=== PATIENT | female | born 1955 | race Caucasian/White ===

== ENCOUNTER → 2020-07-08 17:13 | Outpatient (CLI) | payer MEDICARE, OTHER, SELFPAY ==
[2020-07-08 18:23] LABS: Coronavirus 19 IgG Antibody Negative (Negative); Coronavirus 19 IgM Antibody Negative (Negative)
== END ==
PROVIDERS: Visit Provider Internal Medicine Gastroenterology
DX: Z01.89 Encounter for other specified special examinations (principal); Z12.11 Encounter for screening for malignant neoplasm of colon
CPT/HCPCS: 36415; 86328

== ENCOUNTER 2020-07-10 10:44 | Day surgery (SDC) | payer MEDICARE, OTHER, SELFPAY ==
[2020-07-02 12:12] VITALS: BMI 23.3
[2020-07-10] VITALS (7 sets, daily range): BP systolic 104–136; BP diastolic 59–68; PULSE 57–74; RESP 16–18; TEMP 36.3–37.2; O2SAT 97–99
--- NOTE | 2020-07-10 12:17 | P.PN_ITS ---
[facility] Anesthesia Checklist - Patient Identification Patient Identification: Arm Band - Structural Data Admitted From: Home Planned Operative Procedure/s: colonoscopy Consent for Planned Operative Procedure(s) Verified: Yes Verified Documents: Surgical Consent, History and Physical - NPO Status Verified Time NPO: 00:00 - Additional verifications Anesthesia Reactions: No - Airway Assessment C-Spine Mobility Assessed: Yes (mp2) TMJ Mobility Assessed: Yes Dentition: Good Dentition - Neurological Assessment Level of Consciousness: Awake, Alert - Anesthesia Plan Anesthesia Risk discussed: Yes Anesthesia Plan: Verified ASA Class: I Anesthesia Type: MAC [facility] History I have reviewed the patient's past medical history: Yes Medical History: Reports:: MRSA (lungs) Denies:: Cancer, Diabetes Mellitus Type 1, Diabetes Mellitus Type 2, Internal Pacemaker, Seizures *Have you ever received a pneumonia vaccine?: Yes *Have you received a flu vaccine this season?: No Anesthesia experience/problems:: nac Other Surgeries: Yes: Hysterectomy-Total, Other. No: Pacemaker Amputation: No Fractures: No - *Social History Last grade of school completed: Advanced degree Alcohol Intake: never Substance Use Type: denies use *Occupational Status:: employed *Travel in the last 8 weeks: None Family Hx:: No significant family history
--- NOTE | 2020-07-10 12:34 | HMH.PROC ---
[facility] Procedure Note Procedure Note:: Colonoscopy Procedure Report: Colonoscopy with cold snare polypectomy Endoscopist: Kayode Plaza II, MD Referring physician: Urban Nieves MD Date of Procedure: July 10, 2020 Equipment: Olympus 180 variable stiffness pediatric colonoscope Sedation: MAC sedation Indication: Mrs. Quinn is a 64-year-old female who is here for follow-up screening/surveillance colonoscopy secondary to a personal history of colon polyps. This is her third colonoscopy. Her first colonoscopy 10 years ago revealed 2 polyps. Her last colonoscopy in May 2014 revealed a single sigmoid polyp (tubular adenoma) which was removed (Dr. Raphael Rivas, [facility]). The patient reports no abdominal pain, weight loss, change in her bowel habits or rectal bleeding. She reports no family history of colon cancer. Procedure: Prior to the procedure, a history and physical exam was performed, and patient's medications and allergies were reviewed. The risks, benefits and alternatives of the sedation and procedure were discussed with the patient. All questions were answered and informed consent was obtained. The patient was brought to the procedure room. Patient identification and proposed procedure were verified by the physician and the nurse. The patient was placed in a left lateral decubitus position and the scope was passed under direct vision. Throughout the procedure, the patient's blood pressure, pulse, and oxygen saturations were monitored continuously. The colonoscopy was accomplished without difficulty. The patient tolerated the procedure well. Findings: On digital rectal examination there was normal rectal tone. There were no external hemorrhoids. The colonoscope was introduced through the anal canal to the rectum and advanced to the cecum. The ileocecal valve and appendiceal orifice were identified. The scope was advanced a short distance into the ileum which appeared grossly normal. The scope was then withdrawn into the colon. The cecum was normal. There were 2 polyps (ascending x1 (3 mm) and transverse x1 (5 mm)) which were both removed via cold snare polypectomy. There were scattered diverticuli throughout the descending and sigmoid colon (LEFT colon). The rectum itself was normal. Upon retroflexion within the rectum there were grade 1-2 internal hemorrhoids. The preparation was excellent throughout with [place] Preparation Score of 9. The cecal time was 12 minutes. Impression: 1. Colonic polyps x2 2. Mild left-sided diverticulosis 3. Grade 1-2 internal hemorrhoids Plan: I will follow up the polyp pathology and recommend repeat colonoscopy again in 5-7 years based upon the polyp histology and patient's prior adenomatous polyps. I would encourage fiber supplementation on a long-term daily maintenance basis.
== END 2020-07-10 13:30 | disposition home or self-care (01) ==
LOC: OUTP 10:47
PROVIDERS: PCP Family Medicine; Visit Provider Internal Medicine Gastroenterology
PROC: 0DJD8ZZ Inspection of Lower Intestinal Tract, Via Natural or Artificial Opening Endoscopic (ICD-10-PCS; CPT 45378; principal; 2020-07-10 12:00)
DX: Z12.11 Encounter for screening for malignant neoplasm of colon (principal); Z86.010 Personal history of colon polyps; K63.5 Polyp of colon; K57.30 Diverticulosis of large intestine without perforation or abscess without bleeding; K64.0 First degree hemorrhoids; Z86.14 Personal history of Methicillin resistant Staphylococcus aureus infection; Z90.710 Acquired absence of both cervix and uterus; Z98.82 Breast implant status
CPT/HCPCS: 45385; 88305

== ENCOUNTER → 2021-05-28 12:40 | Outpatient (CLI) | payer MEDICARE, OTHER, SELFPAY | PROVIDERS: Visit Provider Nurse Practitioner Family | DX: Z01.812 Encounter for preprocedural laboratory examination (principal); Z11.52 Encounter for screening for COVID-19 | CPT/HCPCS: U0003 ==

== ENCOUNTER 2023-03-31 19:10 | Emergency (ER) | payer MEDICAID, SELFPAY ==
[2023-03-31 19:11] VITALS: BP 175/77; PULSE 73; RESP 18; TEMP 36.8; O2SAT 98; BMI 24.3
--- NOTE | 2023-03-31 19:15 | EXP.UTC ---
Discharge Plan Disposition Patient Disposition: Home, Self-Care Condition: Good Prescriptions Prescriptions: New amoxicillin-pot clavulanate 875-125 mg Tablet 1 tab PO Q12H Qty: 20 0RF No Action multivitamin 1 EACH capsule 1 each PO DAILY omega-3 fatty acids-fish oil 1 EACH capsule 1 each PO DAILY Referrals Follow up/Referrals: Ottoniel Puga [Primary Care Provider] - See instructions Activity Restrictions/Add. Instructions Additional Instructions/Restrictions: Epsom salt soaks Watch for signs of worsening infection Clinical Impressions Clinical Impression: Puncture wound, Cat scratch of hand Discharge ED Provider: Velma Gramajo [facility] HPI General Stated complaint: AO 03/31, right hand cat bite Time Seen by Provider: 03/31/23 19:44 History of Present Illness Provider Complaint: Patient was petting outside cats when one poked the top of her right hand with its claw. It bled pretty significantly at first. UTD on tetanus shot. Onset (ago): hour(s) (1) Location: right and upper extremity Related Data Home Medications Medication Instructions Recorded Confirmed multivitamin 1 each PO DAILY Supplement 07/02/20 07/10/20 omega-3 fatty acids-fish oil 340 1 each PO DAILY Supplement 07/02/20 07/10/20 mg-1,000 mg capsule Previous Rx's Medication Instructions Recorded amoxicillin 875 mg-potassium 1 tab PO Q12H #20 tabs 03/31/23 clavulanate 125 mg tablet Allergies Allergy/AdvReac Type Severity Reaction Status Date / Time No Known Allergies Allergy Verified 07/02/20 12:19 [facility] Disclaimer: The information contained in this section may have been updated after the patient was seen, as this information can be updated by other users. Social History Smoking Status: Never smoker alcohol intake: never substance use type: denies use current occupational status: employed Travel in the last 8 weeks: None caffeine: Yes ROS Obtained: Yes All systems reviewed & no additional complaints except as documented Musculoskeletal Musculoskeletal: Reports as per HPI Integumentary/Breasts Skin/Breast: Reports as per HPI Physical Exam General General appearance: alert and in no apparent distress Neck Neck exam: Present normal inspection, full ROM and trachea midline; Absent meningismus or lymphadenopathy Chest Chest inspection: Present normal inspection and symmetric chest wall rise; Absent tenderness Respiratory Respiratory exam: Present normal lung sounds bilaterally; Absent respiratory distress Cardiovascular Cardiovascular exam: Present regular rate and normal rhythm; Absent JVD Extremities Exam Extremities exam: Present normal inspection, full ROM and normal capillary refill; Absent calf tenderness Expanded Upper Extremity Exam Right: Hand exam: Present ecchymosis and other (puncture wound dorsal surface) Hand L/R back image: 1. Back Exam Back exam: Present normal inspection; Absent tenderness Neurological Exam Neurological exam: Present alert and oriented X3 Psychiatric Psychiatric exam: Present normal affect and normal mood Skin Skin exam: Present warm, dry, intact and normal color Lymphatic Lymphatic Findings: no adenopathy Medical Decision Making Salvatore Inquiry Pt receiving controlled substance: No
[2023-03-31 19:52] VITALS: BP 175/77; PULSE 73; RESP 18; TEMP 36.8; O2SAT 98
== END 2023-03-31 19:53 | disposition home or self-care (01) ==
PROVIDERS: Emergency Provider Physician Assistant; PCP Family Medicine
DX: S61.431A Puncture wound without foreign body of right hand, initial encounter (principal); S60.511A Abrasion of right hand, initial encounter; W55.03XA Scratched by cat, initial encounter
CPT/HCPCS: 99212; 99214; G0463

== ENCOUNTER 2023-05-27 19:59 | Emergency (ER) | payer MEDICAID, SELFPAY ==
[2023-05-27 20:08] VITALS: BP 181/80; PULSE 69; RESP 16; TEMP 36.6; O2SAT 97; BMI 24.7
--- NOTE | 2023-05-27 20:42 | PC.NURSE ---
md at bedside discussing POC. patient is adamant she doesn't want any iv/meds
--- NOTE | 2023-05-27 20:45 | HMH.EDGENADL ---
Discharge Plan Disposition Patient Disposition: Home, Self-Care Condition: Good Prescriptions Prescriptions: New sulfamethoxazole-trimethoprim 800-160 mg tablet 1 tab PO Q12H 14 Days Qty: 28 0RF No Action multivitamin 1 EACH capsule 1 each PO DAILY omega-3 fatty acids-fish oil 1 EACH capsule 1 each PO DAILY amoxicillin-pot clavulanate 875-125 mg Tablet 1 tab PO Q12H Qty: 20 0RF Referrals Follow up/Referrals: Ottoniel Puga [Primary Care Provider] - See instructions Activity Restrictions/Add. Instructions Additional Instructions/Restrictions: You were evaluated in the emergency department today. We are broadening out your antibiotics to provide better coverage for different bacteria that affect the skin. Please stop taking your amoxicillin at home and take this antibiotic instead. Take the full course as prescribed. Follow-up with your primary care provider over the next 3 days for reassessment of the wound to ensure that it is healing well. Keep it clean and dry. Do not submerge under any water. Return to the emergency department for any new or worsening symptoms. Clinical Impressions Clinical Impression: Leg wound, left Instructions Patient Instructions: Skin Wound, DI for Skin Abscess Discharge ED Provider: Tatiana Arzola General Adult HPI General Chief complaint: Skin/Abscess/Foreign Body Stated complaint: spot on LT leg Time Seen by Provider: 05/27/23 20:35 Mode of Arrival: Ambulatory Source of Information: Patient Limitations: No Limitations Description of Symptoms (Recalled from ER Triage Doc. by RN): pt states she had a biopsy on her LLE on the [place] approximately on 05/11/[address] Puga. pt states she had her sutures removed on 05/25, at this time the incision open and had purulent drainage. pt states she was placed on amoxicillin 500 mg TID. pt reports the area is worsening. History of Present Illness HPI narrative: This patient is a 67-year-old female who denies significant past medical history presenting to the emergency department for evaluation with concern for a wound on her left lower leg that is been present since 05/11/2023 after a biopsy was done by Dr. Puga. She states that she had the sutures removed on 05/25, and incision opened up and had abnormal drainage. Given this, she was placed on amoxicillin 500 mg 3 times daily. She states that she has been compliant with this, however the wound seems to be getting bigger and is not healing. She denies any red streaking up her leg, fever, chills, or other concerns. She denies any history of diabetes or peripheral vascular disease. Related Data Home Medications Medication Instructions Recorded Confirmed multivitamin 1 each PO DAILY Supplement 07/02/20 07/10/20 omega-3 fatty acids-fish oil 340 1 each PO DAILY Supplement 07/02/20 07/10/20 mg-1,000 mg capsule Previous Rx's Medication Instructions Recorded amoxicillin 875 mg-potassium 1 tab PO Q12H #20 tabs 03/31/23 clavulanate 125 mg tablet sulfamethoxazole 800 1 tab PO Q12H 14 days #28 tabs 05/27/23 mg-trimethoprim 160 mg tablet Allergies Allergy/AdvReac Type Severity Reaction Status Date / Time No Known Allergies Allergy Verified 05/27/23 20:18 [facility] Disclaimer: The information contained in this section may have been updated after the patient was seen, as this information can be updated by other users. Social History Smoking Status: Never smoker alcohol intake: never substance use type: denies use current occupational status: employed Travel in the last 8 weeks: None caffeine: Yes ROS Obtained: Yes All systems reviewed & no additional complaints except as documented Physical Exam General General appearance: alert and in no apparent distress Head Head exam: atraumatic and normocephalic Eye Eye exam: Present normal appearance, PERRL and EOMI ENT ENT exam: Present no
--- NOTE | 2023-05-27 20:59 | PC.NURSE ---
per verbal order, left lower leg, 1 inch healing surgical wound noted, mild redness, no pain, no drainage noted. cleaned with hibicleans, dressed with wet to dry dressing, pt tolerated well
[2023-05-27 21:03] VITALS: BP 181/80; PULSE 69; RESP 16; TEMP 36.6; O2SAT 97
== END 2023-05-27 21:05 | disposition home or self-care (01) ==
PROVIDERS: Emergency Provider Emergency Medicine; PCP Family Medicine
DX: T81.89XA Other complications of procedures, not elsewhere classified, initial encounter (principal); Y83.8 Other surgical procedures as the cause of abnormal reaction of the patient, or of later complication, without mention of misadventure at the time of the procedure
CPT/HCPCS: 99283